=== PATIENT | male | born 1995 | race Caucasian/White ===

== ENCOUNTER 2016-10-09 19:53 | Emergency (ER) | payer SELFPAY ==
[~2016-10-09] VITALS: Ht 167.6 cm; Wt 73.0 kg
[2016-10-09 20:21] VITALS: Ht 167.6 cm; Wt 73.0 kg
[2016-10-10] MEDS ORDERED: predniSONE 20 MG TAB PO ONE
[2016-10-10] MEDS ORDERED: DIPHENHYDRAMINE 50 MG INJ IM ONE
[2016-10-10] MEDS ORDERED: FAMOTIDINE 20 MG TAB PO ONE
--- NOTE | 2016-10-10 00:23 | ERD ---
ER Documentation Chief Complaint Date/Time DATE: 10/10/16 TIME: 00:21 Chief Complaint scaterred body rashes x 1 month HPI This is a 21-year-old male presents to the emergency room for evaluation of a body rash that he has had for 1 months duration. The patient does state that he was seen at different hospital and was given a prescription called Medrol, and states that the depression improved with Medrol. He states that he also went to urgent care and had blood work done which is normal and came to the ER today for evaluation. ROS All systems reviewed and are negative except as per history of present illness. Allergies Allergies: Coded Allergies: No Known Allergy (Unverified , 10/09/16) PMhx/Soc Medical and Surgical Hx: pt denies Medical Hx, pt denies Surgical Hx Hx Alcohol Use: No Hx Substance Use: No Hx Tobacco Use: Yes Smoking Status: Current some day smoker Physical Exam Vitals Vital Signs Date Time Temp Pulse Resp B/P Pulse Ox O2 Delivery O2 Flow Rate FiO2 10/09/16 20:21 97.6 63 20 137/71 100 Physical Exam Const: No acute distress Head: Atraumatic Eyes: Normal Conjunctiva ENT: Normal External Ears, Nose and Mouth. Neck: Full range of motion..~ No meningismus. Resp: Clear to auscultation bilaterally Cardio: Regular rate and rhythm, no murmurs Abd: Soft, non tender, non distended. Normal bowel sounds Skin: Patchy raised lesions over the torso Back: No midline or flank tenderness Ext: No cyanosis, or edema Neur: Awake and alert Psych: Normal Mood and Affect Results 24 hrs Current Medications Medications (Trade) Dose Ordered Sig/Lacho Route PRN Reason Start Time Stop Time Status Last Admin Dose Admin Prednisone (Prednisone) 60 mg ONCE ONCE PO 10/10/16 00:00 10/10/16 00:01 DC 10/09/16 23:51 Diphenhydramine HCl (Benadryl) 25 mg ONCE ONCE IM 10/10/16 00:00 10/10/16 00:01 DC 10/09/16 23:51 Famotidine (Pepcid) 20 mg ONCE ONCE PO 10/10/16 00:00 10/10/16 00:01 DC 10/09/16 23:50 Procedures/MDM Chest X-ray 1V Interpreted by me: Soft Tissue: No acute abnormalities Bones: No acute abnormalities Mediastinum/Cardiac Silhouette/Lungs: [No acute abnormalities] This 21-year-old male presents to the ER for evaluation of a rash. I evaluated this patient it does appear that he has a fungal rash however he does say it was improved with Medrol. The patient was given prednisone, Benadryl, and Pepcid here in the emergency room. He will be discharged home with a prescription for prednisone, and terbinafine to take over the course of next 2 weeks for tinea corporis Departure Diagnosis: Primary Impression: Tinea corporis Additional Impression: Rash and other nonspecific skin eruption Condition: Stable GLADYS SIMS DO Oct 10, 2016 00:23
[2016-10-10] MEDS ORDERED: MED4DP PO (00:24)
[2016-10-10] MEDS ORDERED: TERB250T9 PO (00:24)
[2016-10-10 00:35] VITALS: BP 130/85; PULSE 73; RESP 20
--- NOTE | 2016-10-10 01:11 | RADRPT ---
PROCEDURE: Portable chest x-ray. CLINICAL INDICATION: Chest pain. TECHNIQUE: Portable AP view of the chest. COMPARISON: None. FINDINGS: No pulmonary edema or conolidation is identified. The cardiac silhouette is magnified. No pleural effusion is seen. There is no pneumothorax. IMPRESSION: 1. No evidence of acute cardiopulmonary disease. RPTAT: HTAR .Alejandro Mercedes MD, MD Date Time Electronically viewed and signed by .Alejandro Mercedes MD, on 10/10/2016 01:11 .R/
== END 2016-10-10 00:35 | disposition home or self-care (01) ==
LOC: E/R 19:53
DX: B35.4 Tinea corporis (principal); R07.9 Chest pain, unspecified; F17.210 Nicotine dependence, cigarettes, uncomplicated
CPT/HCPCS: 71010; 96372; 99284; J1200; J7512

== ENCOUNTER 2016-10-18 00:29 | Emergency (ER) | payer SELFPAY ==
[~2016-10-18] VITALS: Ht 170.2 cm; Wt 71.0 kg
[~2016-10-18 00:29] MED LIST: MED4DP PO; TERB250T9 PO
[2016-10-18 00:39] VITALS: Ht 170.2 cm; Wt 71.0 kg
[2016-10-18] MEDS ORDERED: DIPHENHYDRAMINE 50 MG INJ IM ONE (02:30)
[2016-10-18] MEDS ORDERED: FAMOTIDINE 20 MG TAB PO ONE (02:30)
[2016-10-18] MEDS ORDERED: DEXAMETHASONE 10 MG/ML 1 ML INJ IM ONE (02:30)
[2016-10-18] MEDS ORDERED: FAMO20TA18 PO (03:00)
[2016-10-18] MEDS ORDERED: BEN25 PO (03:00)
[2016-10-18] MEDS ORDERED: EPIN0.3P4 INJ (03:00)
[2016-10-18] MEDS ORDERED: PRED20TA PO (03:00)
--- NOTE | 2016-10-18 03:03 | ERD ---
ER Documentation Chief Complaint Date/Time DATE: 10/18/16 TIME: 03:02 Chief Complaint Rash and hives all over the body ROS All systems reviewed and are negative except as per history of present illness. Medications Home Meds Active Scripts Famotidine* (Famotidine*) 20 Mg Tablet, 20 MG PO DAILY, #30 TAB Prov:Corin Evans PA-C 10/18/16 Prednisone* (Prednisone*) 20 Mg Tab, 40 MG PO DAILY for 4 Days, TAB Prov:Corin Evans PA-C 10/18/16 Diphenhydramine Hcl* (Benadryl*) 25 Mg Cap, 25 MG PO Q6, #30 CAP Prov:Corin Evans PA-C 10/18/16 Epinephrine (Epipen 2-Yong) 0.3 Mg/0.3 Ml Pen.injctr, 1 EA INJ ONCE Y for ALLERGIC REACTION, #1 EA Prov:Corin Evans PA-C 10/18/16 Methylprednisolone* (Medrol* DOSE PACK) 4 Mg/Dose-Pack Tab.ds.pk, 4 MG PO . DIRECTED, #1 PACKET Prov:GLADYS SISM DO 10/10/16 Terbinafine Hcl* (Terbinafine Hcl*) 250 Mg Tablet, 250 MG PO BID for 14 Days, # 28 TAB Prov:GLADYS SIMS DO 10/10/16 Allergies Allergies: Coded Allergies: No Known Allergy (Unverified , 10/09/16) PMhx/Soc Medical and Surgical Hx: pt denies Medical Hx, pt denies Surgical Hx Hx Alcohol Use: Yes (occassional) Hx Substance Use: No Hx Tobacco Use: Yes Smoking Status: Current some day smoker Physical Exam Vitals Vital Signs Date Time Temp Pulse Resp B/P Pulse Ox O2 Delivery O2 Flow Rate FiO2 10/18/16 00:39 98.5 101 18 102/59 97 Physical Exam Const: [] Head: Atraumatic Eyes: Normal Conjunctiva ENT: Normal External Ears, Nose and Mouth. Neck: Full range of motion..~ No meningismus. Resp: Clear to auscultation bilaterally Cardio: Regular rate and rhythm, no murmurs Abd: Soft, non tender, non distended. Normal bowel sounds Skin: No petechiae or rashes Back: No midline or flank tenderness Ext: No cyanosis, or edema Neur: Awake and alert Psych: Normal Mood and Affect Results 24 hrs Current Medications Medications (Trade) Dose Ordered Sig/Lacho Route PRN Reason Start Time Stop Time Status Last Admin Dose Admin Diphenhydramine HCl (Benadryl) 25 mg ONCE ONCE IM 10/18/16 02:30 10/18/16 02:31 DC 10/18/16 02:29 Dexamethasone (Decadron) 10 mg ONCE ONCE IM 10/18/16 02:30 10/18/16 02:31 DC 10/18/16 02:29 Famotidine (Pepcid) 20 mg ONCE ONCE PO 10/18/16 02:30 10/18/16 02:31 DC 10/18/16 02:29 Departure Diagnosis: Primary Impression: Allergic reaction Encounter type: initial encounter Qualified Code: T78.40XA - Allergic reaction, initial encounter Condition: Good Patient Instructions: Allergic Reaction, Other (General) Referrals: [facility] YOU HAVE RECEIVED A MEDICAL SCREENING EXAM AND THE RESULTS INDICATE THAT YOU DO NOT HAVE A CONDITION THAT REQUIRES URGENT TREATMENT IN THE EMERGENCY DEPARTMENT. FURTHER EVALUATION AND TREATMENT OF YOUR CONDITION CAN WAIT UNTIL YOU ARE SEEN IN YOUR DOCTORS OFFICE WITHIN THE NEXT 1-2 DAYS. IT IS YOUR RESPONSIBILITY TO MAKE AN APPOINTMENT FOR FOLOW-UP CARE. IF YOU HAVE A PRIMARY DOCTOR --you should call your primary doctor and schedule an appointment IF YOU DO NOT HAVE A PRIMARY DOCTOR YOU CAN CALL OUR PHYSICIAN REFERRAL HOTLINE AT IF YOU CAN NOT AFFORD TO SEE A PHYSICIAN YOU CAN CHOSE FROM THE FOLLOWING [facility] [address] [facility]. [facility] [address] [facility] [facility] [address] [facility]. [facility] [address] [facility]. [facility] [address] [facility]. [facility]. [address] Additional Instructions: Llame al doctor ARTIE y jose maria bj MAVERICK PARA DENTRO DE 1-2 VERGARA.Dgale a la secretaria que nosotros le instruimos hacer esta maverick.Avise o llame si zaragoza condicin se empeora antes de la maverick. Regresa aqui si peor o no mejor. Corin Evans PA-C Oct 18, 2016 03:03
== END 2016-10-18 03:08 | disposition home or self-care (01) ==
LOC: FTE 00:29
DX: R21 Rash and other nonspecific skin eruption (principal); F17.210 Nicotine dependence, cigarettes, uncomplicated
CPT/HCPCS: 96372; 99284; J1100; J1200

== ENCOUNTER 2017-01-04 19:26 | Emergency (ER) | payer MEDICAID ==
[~2017-01-04] VITALS: Ht 170.2 cm; Wt 72.0 kg
[~2017-01-04 19:26] MED LIST changes: +BEN25 PO; +EPIN0.3P4 INJ; +FAMO20TA18 PO; +PRED20TA PO
[2017-01-04 19:35] VITALS: Ht 170.2 cm; Wt 72.0 kg
[2017-01-04] MEDS ORDERED: EPINEPHrine 1 MG INJ SC STA ×2 (20:11→21:05)
[2017-01-04] MEDS ORDERED: FAMOTIDINE 20 MG INJ IV ONE (20:30)
[2017-01-04] MEDS ORDERED: METHYLPREDNISOLONE 125 MG INJ IV ONE (20:30)
[2017-01-04] MEDS ORDERED: DIPHENHYDRAMINE 50 MG INJ IV ONE (20:30)
[2017-01-04] MEDS ORDERED: BEN25 PO (22:42)
[2017-01-04] MEDS ORDERED: FAMO-18 PO (22:42)
[2017-01-04] MEDS ORDERED: EPIN0.3P4 INJ (22:42)
[2017-01-04] MEDS ORDERED: PRED20TA PO (22:42)
[2017-01-04 22:50] VITALS: BP 128/72; PULSE 78; RESP 18; TEMP 98.2
--- NOTE | 2017-01-04 22:54 | ERD ---
ER Documentation Chief Complaint Date/Time DATE: 01/04/17 TIME: 22:44 Chief Complaint Hives all over the body started 3 hours ago HPI 21-year-old male patient with no significant past medical history presents the ED complaining of itchy hives all over his body 7 hours ago associated with slight shortness of breath and lip swelling. States that he followed up with an allergy physician and got allergy testing done and is allergic to dust and cockroaches. Reports that he was not exposed to either triggers. Denies any exposure to pets or insects. Denies any new use of soaps, detergents, lotions or creams. Denies others having the same rash or reaction. States that he did not take any new medications or eat any new foods. Denies any fever, chills, abdominal pain, nausea, vomiting, chest pain, wheezing. Denies any dysphagia or odynophagia. ROS All systems reviewed and are negative except as per history of present illness. Medications Home Meds Active Scripts Epinephrine (Epipen 2-Yong) 0.3 Mg/0.3 Ml Pen.injctr, 1 EA INJ ONCE Y for ALLERGIC REACTION, #1 EA Prov:SHEILA ROSS PA-C 01/04/17 Famotidine* (Pepcid*) 20 Mg Tablet, 20 MG PO BID, #30 TAB Prov:SHEILA ROSS PA-C 01/04/17 Diphenhydramine Hcl* (Benadryl*) 25 Mg Cap, 25 MG PO Q6, #30 CAP Prov:SHEILA ROSSC 01/04/17 Prednisone* (Prednisone*) 20 Mg Tab, 40 MG PO DAILY for 4 Days, TAB Prov:SHEILA ROSSC 01/04/17 Famotidine* (Famotidine*) 20 Mg Tablet, 20 MG PO DAILY, #30 TAB Prov:Corin EvansC 10/18/16 Prednisone* (Prednisone*) 20 Mg Tab, 40 MG PO DAILY for 4 Days, TAB Prov:Corin Evans-C 10/18/16 Diphenhydramine Hcl* (Benadryl*) 25 Mg Cap, 25 MG PO Q6, #30 CAP Prov:Corin Evans PA-C 10/18/16 Epinephrine (Epipen 2-Yong) 0.3 Mg/0.3 Ml Pen.injctr, 1 EA INJ ONCE Y for ALLERGIC REACTION, #1 EA Prov:Corin Evans PA-C 10/18/16 Methylprednisolone* (Medrol* DOSE PACK) 4 Mg/Dose-Pack Tab.ds.pk, 4 MG PO . DIRECTED, #1 PACKET Prov:GLADYS SIMS DO 10/10/16 Terbinafine Hcl* (Terbinafine Hcl*) 250 Mg Tablet, 250 MG PO BID for 14 Days, # 28 TAB Prov:GLADYS SIMS DO 10/10/16 Allergies Allergies: Coded Allergies: No Known Allergy (Unverified , 10/09/16) PMhx/Soc Medical and Surgical Hx: pt denies Medical Hx, pt denies Surgical Hx Hx Alcohol Use: Yes (occassional) Hx Substance Use: No Hx Tobacco Use: Yes Smoking Status: Current some day smoker Physical Exam Vitals Vital Signs Date Time Temp Pulse Resp B/P Pulse Ox O2 Delivery O2 Flow Rate FiO2 01/04/17 22:50 98.2 78 18 128/72 99 Room Air 01/04/17 19:35 99.0 101 20 131/68 100 Physical Exam Const: [id number]-icz-tnoxzhlal, well-nourished. In no acute distress. Head: Atraumatic, normocephalic Eyes: Normal Conjunctiva without injection. No purulent discharge. PERRL. EOMI ENT: Normal external ear. Ear canal without erythema. Tympanic membrane pearly stoll without effusion or bulging. Nasal canal clear with normal turbinates. Slight erythematous edematous lips. Moist oropharynx without tonsillar exudates. No tongue swelling. Non-erythematous pharynx. Uvula midline. No drooling. No trismus. Neck: Full range of motion. No meningismus. No cervical lymphadenopathy. Resp: Clear to auscultation bilaterally. No wheezing, rhonchi, rales, or crackles. No accessory muscle use. No retractions. Cardio: Regular rate and rhythm. No murmurs, rubs or gallops. Abd: Soft, non tender, non distended. Normal bowel sounds. No palpable masses. No rebound tenderness. No guarding. Skin: No petechiae, purpura. Erythematous blanching wheals diffusely noted all over the body including the face, torso, bilateral extremities. No bleeding or purulent discharge noted. No fluctuance, induration noted. Back: No midline tenderness. No CVA tenderness. Ext: No cyanosis, or edema. Neur: Awake and alert. Psych: Normal Mood and Affect Results 24 hrs Current Medications Medications (Trade) Dose Ordered Sig/Lacho Route PRN Reason Start Time Stop Time Status Last Admin Dose Admin Epinephrine (EPINEPHrine) 0.3 mg ONCE STAT SC 01/04/17 20:11 01/04/17 20:14 DC 01/04/17 20:22 Diphenhydramine HCl (Benadryl) 50 mg ONCE ONCE IV 01/04/17 20:30 01/04/17 20:31 DC 01/04/17 20:22 Famotidine (Pepcid Iv) 20 mg ONCE ONCE IV 01/04/17 20:30 01/04/17 20:31 DC 01/04/17 20:22 Methylprednisolone Sodium Succinate (Solu-Medrol) 125 mg ONCE ONCE IV 01/04/17 20:30 01/04/17 20:31 DC 01/04/17 20:22 Epinephrine (EPINEPHrine) 0.3 mg ONCE STAT SC 01/04/17 21:05 01/04/17 21:06 DC 01/04/17 21:08 Procedures/MDM This is a 21-year-old male patient with a known history of urticaria presents to the ED complaining of slight shortness of breath, lip swelling, hives. Patient is afebrile and nontoxic-appearing. Patient is speaking in full sentences. No tongue swelling noted. Patient did not use his EpiPen. Patient presents to the ED with a severe allergic reaction versus mild anaphylaxis. This case was discussed with my supervising physician, Dr. Lozano who stated that we can further treat patient with 0.3 mg SQ IM EpiPen, IV Benadryl, Solu- Medrol, famotidine. This improved patient's symptoms. Dr. Lozano and I both reevaluated patient at this time. Lip swelling and erythematous hives have improved. Slight lip swelling still noted therefore another EpiPen 0.3 mg SQ IM was ordered to further treat patient with complete improvement. Patient's niece and sister agree that patient's symptoms are better. Patient is now stable for outpatient management. Patient's lungs are clear to auscultation. No wheezing noted. Pulse oximetry is 100%. There is a low suspicion for pneumonia, foreign body aspiration, atypical MA, pneumothorax, mononucleosis, pulmonary embolism, epiglottitis, otitis media, otitis externa, viral/strep pharyngitis, sinusitis, peritonsillar abscess, mastoiditis, retropharyngeal abscess, meningitis, sepsis, acute abdomen, scabies, SJS/TEN, erythema multiforme, sepsis, cellulitis, necrotizing facitis, gangrene, meningiococcemia or other emergent conditions. Discharge medications: Epipen, Famotidine, Benadryl, Prednisone Patient is hemodynamically stable. Follow up with primary care physician in 1-2 days. Instructed patient to return to the ED sooner for any worsening symptoms. Patient's questions were answered. Patient understood and agreed with discharge plan. Patient discharged stable. Departure Diagnosis: Primary Impression: Allergic reaction Encounter type: initial encounter Qualified Code: T78.40XA - Allergic reaction, initial encounter Additional Impression: Lip swelling Condition: Stable Patient Instructions: Allergic Reaction, Other (General), Anaphylaxis, General [facility]: [facility] Usted se aguilar hecho un examen mdico de control que le indica que no est en bj condicin que requiera tratamiento urgente en el Departamento de Emergencia. Un estudio ms profundo y el tratamiento de zaragoza condicin pueden esperar sin ningn riesgo hasta que usted sea atendida/o en el consultorio de zaragoza mdico o bj cl carmelo. Es responsabilidad suya arreglar bj maverick para el seguimiento del wilbert. MANEJO DE CONDICIONES NO URGENTES EN EL FUTURO 1) Si usted tiene un mdico de atencin primaria: Usted debera llamar a zaragoza mdico de atencin primaria antes de venir al departamento de emergencia. Despus de las horas de consultorio, zaragoza doctor o zaragoza asociado/a est disponible por telfono. El mdico o enfermero de genaro en el servicio telefnico puede asesorarle por myra medio para atender el problema, o wilbert contrario se puede programar bj maverick. 2) Si usted no tiene un mdico de atencin primaria: Llame al mdico o clnica de referencia que aparece abajo bhavesh las horas de consultorio para hacer bj maverick para que le vean. CLINICAS: [facility] [phone] [facility] [phone] [facility] [phone] [facility] [phone] [place] [phone] [address] [facility] [phone] [address] [facility]. [facility] () Usted se aguilar hecho un examen mdico de control que le indica que no est en bj condicin que requiera tratamiento urgente en el Departamento de Emergencia. Un estudio ms profundo y el tratamiento de zaragoza condicin pueden esperar sin ningn riesgo hasta que usted sea atendida/o en el consultorio de zaragoza mdico o bj cl carmelo. Es responsabilidad suya arreglar bj maverick para el seguimiento del wilbert. MANEJO DE CONDICIONES NO URGENTES EN EL FUTURO 1) Si usted tiene un mdico de atencin primaria: Usted debera llamar a zaragoza mdico de atencin primaria antes de venir al departamento de emergencia. Despus de las horas de consultorio, zaragoza doctor o zaragoza asociado/a est disponible por telfono. El mdico o enfermero de genaro en el servicio telefnico puede asesorarle por myra medio para atender el problema, o wilbert contrario se puede programar bj maverick. 2) Si usted no tiene un mdico de atencin primaria: Llame al mdico o condado institucions de referencia que aparece abajo bhavesh las horas de consultorio para hacer bj maverick para que le vean. SI USTED NO PUEDE PAGAR PARA MATTHEW UN MEDICO puede ir a: [facility] [address] [place] [address] [facility] [address] [place] [address] [facility] [address] [place] [address] [facility] [address] [place] [address] [facility]CIALTIES Additional Instructions: Evitar michael alrgenos. Comprar un humidificador. Llame al doctor MAANA y jose maria bj MAVERICK PARA DENTRO DE 1-2 VERGARA.Dgale a la secretaria que nosotros le instruimos hacer esta maverick.Avise o llame si zaragoza condicin se empeora antes de la maverick. Regresa aqui si peor o no mejor. SHEILA ROSS PA-C January 04, 2017 22:54
== END 2017-01-04 22:51 | disposition home or self-care (01) ==
LOC: FTE 19:26
DX: R60.0 Localized edema (principal); F17.210 Nicotine dependence, cigarettes, uncomplicated
CPT/HCPCS: 96372; 96374; 96375; J0171; J1200; J2930; Z7502; Z7610

== ENCOUNTER 2017-08-05 14:39 | Emergency (ER) | payer MEDICAID ==
[~2017-08-05] VITALS: Wt 72.7 kg
[~2017-08-05 14:39] MED LIST changes: +FAMO-96 PO
[2017-08-05] MEDS ORDERED: KETOROLAC 60 MG INJ IM STA (17:06)
--- NOTE | 2017-08-05 17:09 | ERD ---
ER Documentation Chief Complaint Chief Complaint LEFT THIGH/HIP PAIN ONSET 8 DAYS HPI 22-year-old male otherwise healthy presents complaining of pain in his left leg that starts in his left buttocks and radiates down to his left foot. There is no trauma. No numbness or tingling. He is ambulatory. No fever. No swelling. Has not taken any medication. No chest pain or recent travel. ROS All systems reviewed and are negative except as per history of present illness. Medications Home Meds Active Scripts Epinephrine (Epipen 2-Yong) 0.3 Mg/0.3 Ml Pen.injctr, 1 EA INJ ONCE Y for ALLERGIC REACTION, #1 EA Prov:SHEILA ROSS-C 01/04/17 Famotidine* (Pepcid*) 20 Mg Tablet, 20 MG PO BID, #30 TAB Prov:SHEILA ROSS-C 01/04/17 Diphenhydramine Hcl* (Benadryl*) 25 Mg Cap, 25 MG PO Q6, #30 CAP Prov:SHEILA ROSS-C 01/04/17 Prednisone* (Prednisone*) 20 Mg Tab, 40 MG PO DAILY for 4 Days, TAB Prov:SHEILA ROSS PA-C 01/04/17 Famotidine* (Famotidine*) 20 Mg Tablet, 20 MG PO DAILY, #30 TAB Prov:Corin Evans-C 10/18/16 Prednisone* (Prednisone*) 20 Mg Tab, 40 MG PO DAILY for 4 Days, TAB Prov:Corin Evans-C 10/18/16 Diphenhydramine Hcl* (Benadryl*) 25 Mg Cap, 25 MG PO Q6, #30 CAP Prov:Corin Evans-C 10/18/16 Epinephrine (Epipen 2-Yong) 0.3 Mg/0.3 Ml Pen.injctr, 1 EA INJ ONCE Y for ALLERGIC REACTION, #1 EA Prov:Corin Evans-C 10/18/16 Methylprednisolone* (Medrol* DOSE PACK) 4 Mg/Dose-Pack Tab.ds.pk, 4 MG PO . DIRECTED, #1 PACKET Prov:GLADYS SIMS DO 10/10/16 Terbinafine Hcl* (Terbinafine Hcl*) 250 Mg Tablet, 250 MG PO BID for 14 Days, # 28 TAB Prov:GLADYS SIMS DO 10/10/16 Allergies Allergies: Coded Allergies: No Known Allergy (Unverified , 08/05/17) PMhx/Soc Medical and Surgical Hx: pt denies Medical Hx, pt denies Surgical Hx Hx Alcohol Use: Yes (occassional) Hx Substance Use: No Hx Tobacco Use: No FmHx Family History: No diabetes Physical Exam Vitals Vital Signs Date Time Temp Pulse Resp B/P Pulse Ox O2 Delivery O2 Flow Rate FiO2 08/05/17 14:56 98.4 70 17 164/89 99 Physical Exam INITIAL VITAL SIGNS: Reviewed by me GENERAL: Awake, alert and oriented x 4, well appearing, nontoxic, speaking in full sentences. No acute distress HEAD: Atraumatic RESPIRATORY: Clear to auscultation bilaterally. Symmetric chest wall rise. No wheezing or rales. No accessory muscle use. CV: Regular rate and rhythm. No murmurs, rubs, or gallops. ABDOMEN: Soft, non-distended. Nontender. Negative [place]. Negative McBurneys point tenderness. No CVA tenderness bilaterally. No guarding. No rebound. : Deffered. EXTREMITIES: No clubbing or cyanosis. No edema. Moving all extremities normally. BACK: No midline tenderness to palpation. No step-offs. Procedures/MDM Patient has leg pain. His exam is normal. No evidence of infection. No evidence of DVT. Most likely musculoskeletal. He has not tried any medication for this so I think he should try conservative treatment with anti- inflammatories and muscle relaxer first. He was given Toradol here and discharged with ibuprofen and Flexeril. Patient counseled regarding my diagnostic impression and care plan. Prior to discharge all questions answered. Pt agrees with treatment plan and understands strict return precautions. Pt is instructed to follow up with primary care provider within 24-48 hours. Precautionary instructions provided including instructions to return to the ER if not improving or for any worsening or changing symptoms or concerns. Departure Diagnosis: Primary Impression: Pain of left leg Condition: Stable [place] PA-C Aug 05, 2017 17:09
[2017-08-05] MEDS ORDERED: CYCL-319 PO (17:10)
[2017-08-05] MEDS ORDERED: IBUP800T25 PO (17:10)
== END 2017-08-05 17:32 | disposition home or self-care (01) ==
LOC: FTE 14:39
DX: M79.605 Pain in left leg (principal)
CPT/HCPCS: 96372; J1885; Z7502

== ENCOUNTER 2017-08-20 11:08 | Emergency (ER) | payer MEDICAID ==
[~2017-08-20] VITALS: Ht 157.5 cm; Wt 70.0 kg
[~2017-08-20 11:08] MED LIST changes: +CYCL-319 PO; +IBUP800T25 PO
[2017-08-20 11:20] VITALS: Ht 157.5 cm; Wt 70.0 kg
[2017-08-20] MEDS ORDERED: KETOROLAC 60 MG INJ IM STA (11:40)
--- NOTE | 2017-08-20 12:31 | RADRPT ---
PROCEDURE: XR Lumbar Spine. CLINICAL INDICATION: Left-sided radiculopathy. Low back pain. TECHNIQUE: Three views of the lumbar spine are available for review COMPARISON: None available FINDINGS: There is straightening of normal lumbar lordosis. Alignment is intact. No acute fracture or disloc ation is seen. The vertebral body heights and disc spaces are preserved. IMPRESSION: 1. No acute fracture or dislocation. 3. Straightening of the normal lumbar lordosis. RPTAT: HFN .Wallace Jenkins MD, Date Time Electronically viewed and signed by .Wallace Jenkins MD, on 08/20/2017 12:31 .N/
[2017-08-20] MEDS ORDERED: MED4DP PO (12:52)
[2017-08-20] MEDS ORDERED: NAPR-260 PO (12:52)
--- NOTE | 2017-08-20 12:52 | ERD ---
ER Documentation Chief Complaint Chief Complaint Back pain radiating down back of left leg HPI The patient is a 22-year-old male who presents to the Emergency Department with complaint of one-month history of lower back pain radiating down the left lower extremity. The patient notes that his symptoms acutely worsened, and therefore he presents to the ED for evaluation. After onset of the patient's symptoms, he was seen in the Emergency Department on 08/05/2017. Patient was given a dose of Toradol (which he states relieved his pain for greater than 24 hours) and then was discharged home with prescriptions for Ibuprofen and Flexeril. The patient notes that he has been taking the prescribed medications, with no significant relief of symptoms. Since yesterday, he notes that the pain shooting down the left lower extremity worsened. He describes the pain as sharp, shooting and burning in nature, and intermittent. The pain is worse with bending over, and is mildly improved with ambulation or rest. He denies any numbness, paresthesias or weakness of the distal extremity. Denies restricted range of motion. Denies recent falls, injury or trauma to the extremity or back. Denies recent heavy lifting. Denies fevers, sweats, chills, nausea, vomiting, abdominal pain, chest pain, palpitations, shortness of breath, dysuria, hematuria, flank pain. Denies bowel or bladder disturbances, urinary retention or lower extremity weakness. Denies illicit or IV drug use. He rates his current pain as 4/10, and notes that he has not yet taken any medication for pain relief. No other complaints at this time. ROS All systems reviewed and are negative except as per history of present illness. Medications Home Meds Active Scripts Methylprednisolone* (Medrol* DOSE PACK) 4 Mg/Dose-Pack Tab.ds.pk, 4 MG PO . DIRECTED, #1 PACKET Prov:HILARIO HERRON PA-C 08/20/17 Naproxen* (Naprosyn*) 500 Mg Tablet, 500 MG PO BID Y for PAIN AND/OR INFLAMMATION, #30 TAB Prov:HILARIO HERRON PA-C 08/20/17 Ibuprofen* (Motrin*) 800 Mg Tab, 800 MG PO Q6, #30 TAB Prov:[facility] PA-C 08/05/17 Cyclobenzaprine Hcl* (Cyclobenzaprine Hcl*) 10 Mg Tablet, 10 MG PO BID, #20 TAB Prov:[facility] [place] 08/05/17 Epinephrine (Epipen 2-Yong) 0.3 Mg/0.3 Ml Pen.injctr, 1 EA INJ ONCE Y for ALLERGIC REACTION, #1 EA Prov:SHEILA ROSS HOLLY-C 01/04/17 Famotidine* (Pepcid*) 20 Mg Tablet, 20 MG PO BID, #30 TAB Prov:SHEILA ROSS HOLLY-C 01/04/17 Diphenhydramine Hcl* (Benadryl*) 25 Mg Cap, 25 MG PO Q6, #30 CAP Prov:SHEILA ROSS HOLLY-C 01/04/17 Prednisone* (Prednisone*) 20 Mg Tab, 40 MG PO DAILY for 4 Days, TAB Prov:SHEILA ROSS HOLLY-C 01/04/17 Famotidine* (Famotidine*) 20 Mg Tablet, 20 MG PO DAILY, #30 TAB Prov:CristinaCorin BARRERA-C 10/18/16 Prednisone* (Prednisone*) 20 Mg Tab, 40 MG PO DAILY for 4 Days, TAB Prov:CristinaCorin BARRERA-C 10/18/16 Diphenhydramine Hcl* (Benadryl*) 25 Mg Cap, 25 MG PO Q6, #30 CAP Prov:CristinaCorin BARRERA-C 10/18/16 Epinephrine (Epipen 2-Yong) 0.3 Mg/0.3 Ml Pen.injctr, 1 EA INJ ONCE Y for ALLERGIC REACTION, #1 EA Prov:CristinaCorin BARRERA-C 10/18/16 Methylprednisolone* (Medrol* DOSE PACK) 4 Mg/Dose-Pack Tab.ds.pk, 4 MG PO . DIRECTED, #1 PACKET Prov:GLADYS SIMS DO 10/10/16 Terbinafine Hcl* (Terbinafine Hcl*) 250 Mg Tablet, 250 MG PO BID for 14 Days, # 28 TAB Prov:GLADYS SIMS DO 10/10/16 Allergies Allergies: Coded Allergies: No Known Allergy (Unverified , 08/20/17) PMhx/Soc Medical and Surgical Hx: pt denies Medical Hx, pt denies Surgical Hx Hx Alcohol Use: Yes (occassional) Hx Substance Use: No Hx Tobacco Use: No Smoking Status: Never smoker Physical Exam Vitals Vital Signs Date Time Temp Pulse Resp B/P Pulse Ox O2 Delivery O2 Flow Rate FiO2 08/20/17 11:20 98.1 74 18 128/76 99 Physical Exam GENERAL: Well-developed, well-nourished, in no acute distress. HEENT: Head is normocephalic, atraumatic. No scleral pallor or icterus. Extraocular movements intact. Conjunctiva pink. Moist mucous membranes. NECK: Supple. No masses, no tenderness, no lymphadenopathy. Full range of motion. RESPIRATORY: Lungs are clear to auscultation bilaterally. Equal breath sounds. Normal expiratory effort. CARDIOVASCULAR: Regular rate and rhythm. S1 and S2 normal. GASTROINTESTINAL: Abdomen is soft, nontender, and nondistended. No guarding, no rebound tenderness. Normal bowel sounds. No pulsatile abdominal masses. FLANK: No CVA tenderness, no mass or swelling. BACK: No midline tenderness. Mild paraspinal tenderness. Spine curve normal. No deformities. Positive left-sided straight leg raise. Negative right-sided straight leg raise. No foot drop. 5/5 strength to lower extremities bilaterally. No saddle-region anesthesia. EXTREMITIES: No clubbing, cyanosis, or edema. Normal skin perfusion. Moving all extremities. Muscle tone is normal. No focal swelling or erythema. Distal pulses are palpable, 2+ bilaterally. Capillary refill is less than 2 seconds. NEUROLOGIC: The patient is alert, awake, and oriented x 3. No focal neurologic deficits. Gait is observed and normal. There is no ataxia. Motor and sensation grossly intact. INTEGUMENT: Skin is clean, dry and intact. No rashes, lesions or petechiae present. Normal turgor. PSYCHIATRIC: Appropriate; Cooperative. Results 24 hrs Current Medications Medications (Trade) Dose Ordered Sig/Lacho Route PRN Reason Start Time Stop Time Status Last Admin Dose Admin Ketorolac Tromethamine (Toradol) 60 mg ONCE STAT IM 08/20/17 11:40 08/20/17 11:41 DC 08/20/17 11:45 Procedures/MDM DIAGNOSTIC TESTS AND INTERPRETATION: PROCEDURE: XR Lumbar Spine. CLINICAL INDICATION: Left-sided radiculopathy. Low back pain. TECHNIQUE: Three views of the lumbar spine are available for review COMPARISON: None available FINDINGS: There is straightening of normal lumbar lordosis. Alignment is intact. No acute fracture or dislocation is seen. The vertebral body heights and disc spaces are preserved. IMPRESSION: 1. No acute fracture or dislocation. 3. Straightening of the normal lumbar lordosis. .Wallace Jenkins MD, MD Date Time Electronically viewed and signed by .Wallace Jenkins MD, MD on 08/20/2017 12: 31 MEDICAL DECISION MAKING: This is a 22-year-old male presenting to the Emergency Department with complaint of low back pain radiating down the left lower extremity. On physical examination the patient had mild paraspinal muscle tenderness. He had a positive left straight leg raise and crossed leg raise, with no saddle-region anesthesia noted. Vital signs were appropriate. He exhibited no altered mental status, neurologic deficits, saddle anesthesia, bowel or bladder disturbances, incontinence, urinary retention, or lower extremity motor or sensory deficits. The differential diagnosis includes, but is not limited to cauda equina syndrome, epidural abscess, epidural hematoma, osteomyelitis, vertebral fracture, lumbosacral strain, herniated disc, spinal stenosis, nephrolithiasis, osteoarthritis, sciatica, spondylolisthesis, bursitis , fracture, pyelonephritis, abdominal aortic aneurysm, aortic dissection, herpes zoster, radiculopathy, myelopathy, neoplastic disease. X-ray imaging revealed straightening of the normal lumbar lordosis. Otherwise, no acute fracture or dislocation. After rest and administration of Toradol, the patient reports no new complaints, and decreased pain. Upon my review and interpretation of the patient's presentation, clinical data, and overall ER course, I believe the patient's symptoms are most consistent with low back pain with left-sided sciatica. I doubt cord compression or cauda equina syndrome, as patient is with equal, strong motor in bilateral lower extremities, no bowel/bladder disturbances, incontinence or retention, no saddle -anesthesia. Doubt vertebral fracture, no midline bony tenderness, no history of significant recent trauma. Doubt neoplastic disease, metastases unlikely given no night sweats, systemic symptoms, no risk factors. Doubt epidural abscess, patient is afebrile, with no history of IV drug use and is immunocompetent. Renal/aortic pathology not consistent with patient history or physical examination, no pulsatile abdominal masses, equal pulses bilaterally. Doubt pyelonephritis, no systemic symptoms, no flank pain, no CVA tenderness. Doubt zoster, no vesicular lesions noted. At this time, the patient is in stable condition and therefore can be discharged home with a prescription for Medrol Dosepak and Naproxen and strict return precautions for signs of deteriorating or worsening condition. The patient is advised to follow up with a primary care provider within 2-3 days for reevaluation and further management, or return to the ER sooner for any new or worsening symptoms. If symptoms persist, recommend that the patient follow up as an outpatient for MRI. I shared my medical decision making and plan with the patient and he verbally understands and agrees with the plan for further observation and care as an outpatient. At the time of discharge, all questions were answered. Departure Diagnosis: Primary Impression: Back pain with left-sided sciatica Condition: Stable Patient Instructions: Back Pain W/ Sciatica, Understanding Sciatica Additional Instructions: Llame al doctor MAANA y jose maria bj MAVERICK PARA DENTRO DE 2-3 VERGARA.Dgale a la secretaria que nosotros le instruimos hacer esta maverick.Avise o llame si zaragoza condicin se empeora antes de la maverick. Regresa aqui si peor o no mejor. HILARIO HERRON PA-C Aug 20, 2017 12:52
== END 2017-08-20 13:00 | disposition home or self-care (01) ==
LOC: FTE 11:08
DX: M54.42 Lumbago with sciatica, left side (principal)
CPT/HCPCS: 72100; 96372; J1885; Z7502